=== PATIENT | male | born 1940 | race Caucasian/White ===

== ENCOUNTER 2018-10-16 19:54 | Inpatient (IN) ==
[2018-10-16] MEDS ORDERED: ONDANSETRON 4 MG/2 ML VIAL IV STA (20:47)
[2018-10-16] MEDS ORDERED: HYDROmorphone 2 MG/1 ML VIAL IV STA (20:47)
[2018-10-16] MEDS ORDERED: SODIUM CHLORIDE 0.9% 1,000 ML IV STA (20:47)
[2018-10-16] MEDS ORDERED: PANTOPRAZOLE 40 MG VIAL IV STA (20:47)
[2018-10-16] MEDS ORDERED: ALUM/MAG/SIMETH/LIDO VISC 1:1 30 ML BOTTLE PO STA (20:47)
[2018-10-16 20:58] LABS: Basophils % 0.2 % (0.0-0.8); Eosinophils # 0.1 10*3/uL (0.0-0.87); Eosinophils % 0.8 % (0.00-10.9); Hematocrit 41.6 VOL% (42.0-52.0); Hemoglobin 13.8 GM/DL (14.0-18.0); Immature Granulocytes % 0.5 %; Immature Granulocytes Absolute 0.06 #; Lymphocytes # 0.5 10*3/uL (1.4-4.0); Lymphocytes % 4.3 % (21.2-54.2); Mean Corpuscular HGB Conc 33.2 GM/DL (32-36); Mean Corpuscular Volume 90.2 FL (87-102); Mean Platelet Volume 10.3 FL (9.6-12.0); Monocytes % 8.8 % (1.7-12.7); Neutrophils % 85.4 % (38.7-73.9); Platelet Count 198 T/CUMM (130-400); Red Blood Count 4.61 MC/CUMM (3.8-5.5); Red Cell Distribution Width 13.2 % (9.3-17.3); White Blood Count 11.2 T/CUMM (4-12)
[2018-10-16 21:14] LABS: Albumin 3.5 G/DL (3.4-5.0); Bilirubin,Total 3.8 MG/DL (0.2-1.0); Calcium 9.2 MG/DL (8.5-10.1); Osmolality,Calculated 283.5 MOS/KG (273-304); Total Protein 6.4 G/DL (6.4-8.3)
[2018-10-16] MEDS ORDERED: MAGNESIUM SULF RIDER 2 GM in PREMIX 1 EACH IV STA (21:31)
[2018-10-16 21:36] LABS: Eosinophils 2 % (0-10); Lymphocytes 3 % (20-55); Segmented Neutrophils 87 % (50-85); Total Cells Counted 100
[2018-10-16 21:37] LABS: Anisocytosis 1+; Platelet Estimate Adequate
[2018-10-16 21:58] LABS: Apearance,Urine CLEAR (Clear); Blood, Urine Negative (Negative); Glucose,Urine (UA) Negative (Negative); Ketones,Urine Negative (Negative); Mucus,Urine Occasional /LPF (Occasional); Nitrite,Urine Negative (Negative); Protein,Urine 100 MG/DL; RBC,Urine 7 /HPF (0-4); Urine Color Amber (Yellow); Urine Specific Gravity 1.025 (1.001-1.035); WBC,Urine 1 /HPF (0-6)
[2018-10-16 21:59] LABS: Bilirubin,Urine Small mg/dL (Negative)
[2018-10-16] MEDS ORDERED: ONDANSETRON 4 MG/2 ML VIAL IV PRN (23:33)
[2018-10-16] MEDS ORDERED: HYDROmorphone 2 MG/1 ML VIAL IV PRN (23:36)
[2018-10-17] MEDS ORDERED: DEXTROSE 50% 25 GM/50 ML VIAL IV PRN (00:06)
[2018-10-17] MEDS ORDERED: GLUCAGON 1 MG VIAL IM PRN (00:06)
[2018-10-17] MEDS: PIPERACILLIN/TAZOBACTAM 3,375 MG in SODIUM CHLORIDE 0.9% 100 ML IV SCH ×2 (01:48→09:56)
[2018-10-17] MEDS: INSULIN REGULAR 100 UNIT/ML SUBCUT SCH ×5 (04:00→21:23)
[2018-10-17 05:33] LABS: Basophils % 0.1 % (0.0-0.8); Eosinophils # 0.1 10*3/uL (0.0-0.87); Eosinophils % 1.5 % (0.00-10.9); Hemoglobin 12.6 GM/DL (14.0-18.0); Immature Granulocytes % 0.4 %; Immature Granulocytes Absolute 0.04 #; Lymphocytes # 0.9 10*3/uL (1.4-4.0); Lymphocytes % 9.1 % (21.2-54.2); Mean Corpuscular HGB Conc 33.2 GM/DL (32-36); Mean Corpuscular Volume 90.7 FL (87-102); Mean Platelet Volume 10.9 FL (9.6-12.0); Monocytes % 9.3 % (1.7-12.7); Neutrophils % 79.6 % (38.7-73.9); Platelet Count 176 T/CUMM (130-400); Red Blood Count 4.19 MC/CUMM (3.8-5.5); Red Cell Distribution Width 13.2 % (9.3-17.3); White Blood Count 9.6 T/CUMM (4-12)
[2018-10-17 06:02] LABS: Bilirubin,Total 4.9 MG/DL (0.2-1.0); Calcium 8.8 MG/DL (8.5-10.1); Osmolality,Calculated 286.3 MOS/KG (273-304); Total Protein 5.8 G/DL (6.4-8.3)
[2018-10-17] MEDS ORDERED: DEXTROSE 10% 250 ML IV PRN (06:49)
[2018-10-17] MEDS ORDERED: NATEGLINIDE 60 MG PO SCH (07:30)
[2018-10-17] MEDS ORDERED: ROCURONIUM 100 MG/10 ML VIAL IV ONE (10:00)
[2018-10-17] MEDS ORDERED: ONDANSETRON 4 MG/2 ML VIAL ONE (10:00)
[2018-10-17] MEDS ORDERED: GLYCOPYRROLATE 0.4 MG/2 ML VIAL ONE (10:00)
[2018-10-17] MEDS ORDERED: PROPOFOL 200 MG/20 ML VIAL IV ONE (10:00)
[2018-10-17] MEDS ORDERED: SUCCINYLCHOLINE 200 MG/10 ML VIAL ONE (10:00)
[2018-10-17] MEDS ORDERED: LIDOCAINE 2% 5 ML VIAL ONE (10:00)
[2018-10-17] MEDS ORDERED: NEOSTIGMINE 10 MG/10 ML VIAL ONE (10:00)
[2018-10-17 10:53] LABS: INR 1.1; PT Patient Result 11.4 SECS
[2018-10-17] MEDS: LACTATED RINGERS 1,000 ML IV SCH (11:40)
[2018-10-17 12:22] LABS: Hepatitis B Core IgM Quant 0.11 Index; Hepatitis B Surface Ag Quant < 0.10 Index; Hepatitis B Surface Ag Result Negative (Negative); Hepatitis C Virus Ab Quant 0.07 Index; Hepatitis C Virus Ab Result Negative (Negative)
[2018-10-17] MEDS ORDERED: INDOMETHACIN SUPP 50 MG SUPP RECTAL ONE (12:30)
[2018-10-17] MEDS ORDERED: fentaNYL 100 MCG/2 ML VIAL ONE (12:59)
[2018-10-17] MEDS ORDERED: GLUCAGON 1 MG VIAL ONE (13:50)
[2018-10-17] MEDS: ASPIRIN EC 81 MG TABLET PO SCH (17:20)
[2018-10-17] MEDS: SODIUM CHLORIDE 0.9% 1,000 ML IV SCH (18:25)
[2018-10-17] MEDS: amLODIPine 5 MG TABLET PO SCH (21:21)
[2018-10-18] MEDS: PIPERACILLIN/TAZOBACTAM 3,375 MG in SODIUM CHLORIDE 0.9% 100 ML IV SCH ×3 (03:18→20:42)
[2018-10-18 04:58] LABS: Basophils % 0.1 % (0.0-0.8); Eosinophils # 0.2 10*3/uL (0.0-0.87); Eosinophils % 1.3 % (0.00-10.9); Hematocrit 36.8 VOL% (42.0-52.0); Hemoglobin 12.1 GM/DL (14.0-18.0); Immature Granulocytes % 0.4 %; Immature Granulocytes Absolute 0.05 #; Lymphocytes # 1.2 10*3/uL (1.4-4.0); Lymphocytes % 9.9 % (21.2-54.2); Mean Corpuscular HGB Conc 32.9 GM/DL (32-36); Mean Corpuscular Volume 92.2 FL (87-102); Monocytes % 8.2 % (1.7-12.7); Neutrophils % 80.1 % (38.7-73.9); Platelet Count 169 T/CUMM (130-400); Red Blood Count 3.99 MC/CUMM (3.8-5.5); Red Cell Distribution Width 13.3 % (9.3-17.3); White Blood Count 12.3 T/CUMM (4-12)
[2018-10-18 05:26] LABS: Albumin 3.1 G/DL (3.4-5.0); Bilirubin,Total 3.5 MG/DL (0.2-1.0); Calcium 8.7 MG/DL (8.5-10.1); Osmolality,Calculated 280.4 MOS/KG (273-304); Total Protein 5.9 G/DL (6.4-8.3)
[2018-10-18] MEDS: ASPIRIN EC 81 MG TABLET PO SCH (09:25)
[2018-10-18] MEDS: INSULIN REGULAR 100 UNIT/ML SUBCUT SCH ×4 (09:26→22:18)
[2018-10-18] MEDS: SODIUM CHLORIDE 0.9% 1,000 ML IV SCH (12:20)
[2018-10-18] MEDS: LACTATED RINGERS 1,000 ML IV SCH (13:14)
[2018-10-18] MEDS: amLODIPine 5 MG TABLET PO SCH (20:42)
[2018-10-19] MEDS: PIPERACILLIN/TAZOBACTAM 3,375 MG in SODIUM CHLORIDE 0.9% 100 ML IV SCH ×3 (03:41→18:35)
[2018-10-19 05:04] LABS: Eosinophils # 0.3 10*3/uL (0.0-0.87); Eosinophils % 4.2 % (0.00-10.9); Hematocrit 36.9 VOL% (42.0-52.0); Hemoglobin 12.4 GM/DL (14.0-18.0); Immature Granulocytes % 0.6 %; Immature Granulocytes Absolute 0.05 #; Lymphocytes # 1.8 10*3/uL (1.4-4.0); Lymphocytes % 23.6 % (21.2-54.2); Mean Corpuscular HGB Conc 33.6 GM/DL (32-36); Mean Corpuscular Volume 90.9 FL (87-102); Mean Platelet Volume 11.1 FL (9.6-12.0); Neutrophils % 63.6 % (38.7-73.9); Platelet Count 169 T/CUMM (130-400); Red Blood Count 4.06 MC/CUMM (3.8-5.5); Red Cell Distribution Width 13.2 % (9.3-17.3); White Blood Count 7.8 T/CUMM (4-12)
[2018-10-19 05:27] LABS: Albumin 2.8 G/DL (3.4-5.0); Bilirubin,Total 1.8 MG/DL (0.2-1.0); Calcium 8.5 MG/DL (8.5-10.1); Osmolality,Calculated 281.3 MOS/KG (273-304); Total Protein 5.8 G/DL (6.4-8.3)
[2018-10-19] MEDS: ASPIRIN EC 81 MG TABLET PO SCH (09:11)
[2018-10-19] MEDS: INSULIN REGULAR 100 UNIT/ML SUBCUT SCH ×4 (10:11→22:13)
[2018-10-19] MEDS: LACTATED RINGERS 1,000 ML IV SCH (17:46)
[2018-10-19] MEDS: SODIUM CHLORIDE 0.9% 1,000 ML IV SCH (17:47)
[2018-10-19] MEDS: amLODIPine 5 MG TABLET PO SCH (20:11)
[2018-10-20] MEDS: PIPERACILLIN/TAZOBACTAM 3,375 MG in SODIUM CHLORIDE 0.9% 100 ML IV SCH ×3 (04:20→21:23)
[2018-10-20 05:03] LABS: Basophils % 0.1 % (0.0-0.8); Eosinophils # 0.4 10*3/uL (0.0-0.87); Eosinophils % 4.2 % (0.00-10.9); Hematocrit 39.7 VOL% (42.0-52.0); Immature Granulocytes % 0.6 %; Immature Granulocytes Absolute 0.06 #; Lymphocytes # 1.8 10*3/uL (1.4-4.0); Lymphocytes % 19.2 % (21.2-54.2); Mean Corpuscular HGB Conc 32.7 GM/DL (32-36); Mean Corpuscular Volume 91.3 FL (87-102); Mean Platelet Volume 10.4 FL (9.6-12.0); Monocytes % 9.5 % (1.7-12.7); Neutrophils % 66.4 % (38.7-73.9); Platelet Count 199 T/CUMM (130-400); Red Blood Count 4.35 MC/CUMM (3.8-5.5); Red Cell Distribution Width 12.9 % (9.3-17.3); White Blood Count 9.4 T/CUMM (4-12)
[2018-10-20 05:33] LABS: Albumin 3.1 G/DL (3.4-5.0); Bilirubin,Total 1.5 MG/DL (0.2-1.0); Total Protein 6.2 G/DL (6.4-8.3)
[2018-10-20] MEDS ORDERED: cefOXitin 2,000 MG in SYRINGE 1 EACH IV ONE (08:00)
[2018-10-20] MEDS: INSULIN REGULAR 100 UNIT/ML SUBCUT SCH ×4 (08:02→21:24)
[2018-10-20] MEDS ORDERED: BUPIVACAINE MPF 0.25% /EPI 30 ML VIAL ONE (10:01)
[2018-10-20] MEDS ORDERED: LIDOCAINE 1%/EPI INJ 20 ML VIAL ONE (10:01)
[2018-10-20] MEDS ORDERED: TISSUE ADHESIVE 1 EACH APPLICATOR TOP ONE (11:22)
[2018-10-20] MEDS ORDERED: PROPOFOL 200 MG/20 ML VIAL IV ONE (12:58)
[2018-10-20] MEDS ORDERED: SEVOFLURANE 1 UNIT/15 MINUTE INH ONE (12:58)
[2018-10-20] MEDS ORDERED: fentaNYL 100 MCG/2 ML VIAL ONE (12:58)
[2018-10-20] MEDS ORDERED: GLYCOPYRROLATE 0.4 MG/2 ML VIAL ONE (12:59)
[2018-10-20] MEDS ORDERED: NEOSTIGMINE 10 MG/10 ML VIAL ONE (12:59)
[2018-10-20] MEDS ORDERED: PHENYLEPHRINE 1 MG/10 ML SYRINGE IV ONE (12:59)
[2018-10-20] MEDS ORDERED: SUCCINYLCHOLINE 200 MG/10 ML VIAL ONE (12:59)
[2018-10-20] MEDS ORDERED: ROCURONIUM 100 MG/10 ML VIAL IV ONE (12:59)
[2018-10-20] MEDS ORDERED: ePHEDrine 50 MG/ML AMP ONE (12:59)
[2018-10-20] MEDS ORDERED: ONDANSETRON 4 MG/2 ML VIAL ONE (12:59)
[2018-10-20] MEDS ORDERED: LACTATED RINGERS 1,000 ML IV ONE (13:00)
[2018-10-20] MEDS: ASPIRIN EC 81 MG TABLET PO SCH (13:56)
[2018-10-20] MEDS: SODIUM CHLORIDE 0.9% 1,000 ML IV SCH (13:56)
[2018-10-20] MEDS: amLODIPine 5 MG TABLET PO SCH (21:24)
[2018-10-21] MEDS: PIPERACILLIN/TAZOBACTAM 3,375 MG in SODIUM CHLORIDE 0.9% 100 ML IV SCH (04:49)
[2018-10-21 05:27] LABS: Basophils % 0.1 % (0.0-0.8); Eosinophils # 0.3 10*3/uL (0.0-0.87); Eosinophils % 2.5 % (0.00-10.9); Hematocrit 37.2 VOL% (42.0-52.0); Hemoglobin 12.5 GM/DL (14.0-18.0); Immature Granulocytes % 0.5 %; Immature Granulocytes Absolute 0.05 #; Lymphocytes # 1.7 10*3/uL (1.4-4.0); Lymphocytes % 16.5 % (21.2-54.2); Mean Corpuscular HGB Conc 33.6 GM/DL (32-36); Mean Corpuscular Volume 91.6 FL (87-102); Mean Platelet Volume 10.1 FL (9.6-12.0); Monocytes % 10.9 % (1.7-12.7); Neutrophils % 69.5 % (38.7-73.9); Platelet Count 222 T/CUMM (130-400); Red Blood Count 4.06 MC/CUMM (3.8-5.5); Red Cell Distribution Width 13.2 % (9.3-17.3)
[2018-10-21 06:15] LABS: Calcium 8.8 MG/DL (8.5-10.1); Osmolality,Calculated 282.3 MOS/KG (273-304)
[2018-10-21 07:12] LABS: Albumin 2.9 G/DL (3.4-5.0); Bilirubin,Direct 0.47 MG/DL (0.0-0.20); Bilirubin,Indirect 0.5 MG/DL (0.0-1.0)
[2018-10-21] MEDS: ASPIRIN EC 81 MG TABLET PO SCH (09:08)
[2018-10-21] MEDS: INSULIN REGULAR 100 UNIT/ML SUBCUT SCH ×2 (09:08→12:00)
[2018-10-21 12:00] VITALS: BP 150/93
== END 2018-10-21 14:05 | disposition home or self-care (01) | DRG 418 ==
LOC: N.ED 19:54 → N.EDINP 23:33 → SUATTDRO 23:33 → N.2E 23:48
PROVIDERS: ADMIT Internal Medicine; ATTEND Internal Medicine
PROC: LAPCHOL (2018-10-20 11:34)